=== PATIENT | male | born 1990 | race Hispanic/Latino ===

== ENCOUNTER 2017-02-13 17:59 | Observation (INO) | payer OTHER ==
[~2017-02-13] VITALS: Ht 175.3 cm; Wt 86.9 kg
[2017-02-13 17:45] VITALS: BP 157/103; PULSE 78; RESP 20; O2SAT 96
[~2017-02-13 17:59] MED LIST: Dexamethasone 4 mg/mL Inj ONE; Ondansetron 2 mg/mL 2 mL Inj ONE; Propofol 10,000 mCg/mL 20 mL Inj ONE; Rocuronium 10 mg/mL 5 mL Inj ONE; fentaNYL-PF 50 mCg/mL 2 mL Inj ONE
[2017-02-13] MEDS: Dextrose 5% Lactated Ringer's 1,000 ML IV SCH (18:03)
[2017-02-13] MEDS ORDERED: MetoCLOpramide 5 mg/mL 2 mL Inj IVPUSH PRN (18:05)
[2017-02-13] MEDS ORDERED: Ondansetron 2 mg/mL 2 mL Inj IVPUSH PRN (18:05)
[2017-02-13] MEDS: HYDROmorphone 1 mg/mL Inj IVPUSH PRN (19:11)
--- NOTE | 2017-02-13 19:13 | NUR ---
Admit Pt. arrived to unit at 1745. Pt. alert and oriented. 20 g IV site present to right AC, patent. Pain to right, lower abd, reported 5/10. Denies n/v. BP elevated 150/100, due to anxiety, afebrile, on RA. NPO since 0800 AM. Loose stools per bathroom, from drinking prune juice. No home medications. Valuables at beside, recommended to take home by family. Pt. has IV fluids infusing per MD orders. Diluadid 0.5mg IV given. Reported to Kamlesh Sales RN to continue care.
[2017-02-13 20:02] VITALS: BP 126/80; PULSE 75; RESP 16; O2SAT 97
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
[2017-02-13] MEDS ORDERED: Lactated Ringer's 1,000 ML IV ONE (23:55)
[2017-02-14] VITALS (9 sets, daily range): BP systolic 118–153; BP diastolic 71–109; PULSE 68–94; RESP 11–16; O2SAT 98–100
[2017-02-14] MEDS ORDERED: Lactated Ringer's 500 ML IV PRN (00:28)
[2017-02-14] MEDS ORDERED: Lactated Ringer's 1,000 ML IV SCH (00:28)
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
[2017-02-14] MEDS ORDERED: EPHEDrine Sulfate 50 mg/mL Inj IVPUSH PRN (00:30)
[2017-02-14] MEDS ORDERED: Piperacillin-Tazo 3.375 Gm Inj 3.375 GM in Dextrose 5% Minibag Plus 50 ML IV SCH (00:30)
[2017-02-14] MEDS ORDERED: Ondansetron 2 mg/mL 2 mL Inj IVPUSH PRN (00:30)
[2017-02-14] MEDS ORDERED: Phenylephrine 10,000 mCg/mL Inj IVPUSH PRN (00:30)
[2017-02-14] MEDS ORDERED: Dexamethasone 4 mg/mL Inj IVPUSH PRN (00:30)
[2017-02-14] MEDS ORDERED: HYDROmorphone 1 mg/mL Inj IVPUSH PRN (00:30)
[2017-02-14] MEDS ORDERED: MetoCLOpramide 5 mg/mL 2 mL Inj IVPUSH PRN (00:30)
[2017-02-14] MEDS ORDERED: Bupivacaine-MPF 0.25%/EPI 30 mL Inj INFILTRATE ONE (00:41)
--- NOTE | 2017-02-14 01:37 | PCM.ANEP1 ---
Post Anesthesia PACU Phase 1 Assessment Vital Signs 36.5, 95, 16, 100%, 152/94. Vital Signs Date Time Temp Pulse Resp B/P Pulse Ox O2 Delivery O2 Flow Rate FiO2 02/13/17 20:02 36.9 75 16 126/80 97 Room Air 02/13/17 17:45 36.7 78 20 157/103 96 Room Air Anesthetic Administered: GA Level of Alertness: Awake, talking ARRIETA's with Equal Strength: Yes Pain: No Pain Scale Score: 0 Nausea or Vomiting: No CV Function & Hydration Stable: Yes Airway Device: none Oxygen Delivery: Simple Mask Lungs: Clear to Auscultation, Normal Air Movement Dermatome Level: Full Sensation Summary uneventful GETA PACU Phase 2 Assessment Complications: No Follow up Care: No Patient Instructions Provided: N/A Alex Souza MD Feb 14, 2017 01:37
[2017-02-14] MEDS: fentaNYL-PF 50 mCg/mL 2 mL Inj IVPUSH PRN ×2 (01:47→01:51)
[2017-02-14] MEDS: Dextrose 5% Lactated Ringer's 1,000 ML IV SCH (02:28)
[2017-02-14] MEDS: HYDROmorphone 1 mg/mL Inj IVPUSH PRN (04:00)
--- NOTE | 2017-02-14 04:07 | OP ---
[address] [address] OPERATIVE REPORT PATIENT: LOUISA ANDERSON : 1990 MR#: [id number] ADMIT: 02/13/2017 JOB ID: [id number] DATE OF SURGERY: 02/14/2017 PREOPERATIVE DIAGNOSIS(ES): Acute appendicitis. POSTOPERATIVE DIAGNOSIS(ES): Acute appendicitis. PROCEDURE: Laparoscopic appendectomy. SURGEON: Bruno Last MD. HAIRSPRING ADJUSTER: Hugh Florez MD. INDICATIONS: A 26-year-old male with a history of abdominal pain over the last 24 hours that ultimately migrated to the right lower quadrant. He came to the emergency department. A CT scan showed appendicitis and after discussing options with the patient, it was elected proceed with a laparoscopic, possible open appendectomy. FINDINGS: He had acute appendicitis. The base of the appendix was normal. The terminal ileum appeared normal without evidence of inflammation. There is no evidence of cecal or ascending colon inflammation. DESCRIPTION OF PROCEDURE: At the beginning and end of the operation, the SCOAP checklist was completed. A general endotracheal anesthetic was induced. Using ChloraPrep, he was prepped and draped in the usual fashion. He received preoperative antibiotics. He received local anesthesia with 0.25% bupivacaine with epinephrine. An infraumbilical incision was made. The abdominal cavity was entered, cannula inserted, the abdomen insufflated with CO2. Under direct visualization, 5 mm ports were placed in the left lower quadrant and one in the suprapubic region. The inflamed appendix was identified and elevated. The base of the appendix was normal. The mesoappendix was thickened and so it was elected to make a window at the base of the appendix which was done with a combination of cautery and blunt dissection. After the window was made, a JOSE LUIS stapler was placed with a visceral load and the base of the appendix was stapled. The mesoappendix, which I stated above was thickened, was then divided with a vascular load with the JOSE LUIS. Both staple lines were intact and there is no evidence of bleeding from the staple line. The right lower quadrant and pelvis were irrigated with saline and aspirated. The appendix had been placed into a specimen bag. The specimen bag was removed through the umbilical cavity. Trocars were removed without evidence of significant bleeding. The umbilical fascial incision was closed with a [id number] 0 Vicryl. Skin incisions with subcuticular 4-0 Vicryl. Steri-Strips and Band-Aids were applied. Estimated blood loss 10 cc. No apparent complications. The final sponge, needle and instrument counts were announced as correct and the patient was returned to recovery in stable condition.
--- NOTE | 2017-02-14 06:15 | NUR ---
Lap/Appy Pt here from [facility] for R/O Appendicitis which was confirmed by CT so he was scheduled for a Lap/Appy last night. It was successful w/o complications. VSS and he is in good spirits.He has had some pain but and has had relieve with Dilaudid. He is on RA and an IV with D5/LR running.
[2017-02-14 07:35] LABS: BASOPHILS % (AUTO) 0.1 % (0-3); EOSINOPHILS % (AUTO) 0 % (0-5); MONOCYTES % (AUTO) 2.8 % (4-12); Mean Corpuscular Hemoglobin 29.2 pg (27.0-35.0); Mean Corpuscular Volume 83.6 fL (81-100); NEUTROPHILS % (AUTO) 88.8 % (40-74); Platelet Count 245 bil/L (150-400)
--- NOTE | 2017-02-14 08:12 | NUR ---
Social Work: Screen D: Per EMR review, pt is a 26 year old male admitted for appendicitis. Pt is [employer] insurance with no supplement. PCP is not listed. NOK is Pratik Fernandes, Friend. Advanced directives not completed- copy of directives left for patient at bedside. No RA score entered at this time. Pt underwent lap. appy with general surgery. No hospitalist assigned to care. A: Pt who lives in [place]. Pt has been ambulating I to the bathroom during admission. Pt does not screen in for assessment however case management will continue to follow. P: Anticipate pt to discharge home via POV once medically stable; GEOPHYSICAL SUPPORT SPECIALIST to continue to follow to assess for unmet discharge needs. EDUARDO Dia
[2017-02-14] MEDS ORDERED: Polyethylene Glycol (PEG) 17 Gm Powder PO SCH (08:30)
--- NOTE | 2017-02-14 10:07 | PCM.DISURG ---
Surgical Discharge Instruction Date of Service Feb 14, 2017 Dates of Hospitalization Date of Hospital Admission Feb 13, 2017 at 17:59 Providers Admitting Physician: Bruno Last MD Primary Care Physician: Nopcp Attending Physician: Bruno Last MD Discharge Diagnosis Discharge Diagnosis Acute appendicitis (non-perforated) Diet Discharge Diet: No restrictions Activity Discharge Activity-General: Try not to overdue, Be up and about, Activity as pain allows, No lifting >15 pounds for 2 weeks, No driving while taking narcotic Dressing and Incisional Care Dressing Care: Allow Steri Stripes to fall off, Remove outer dressing after 24 hrs Hygiene: May shower after (24 hours), DO NOT soak incision under water, NO bathtub, hot tub or whirlpool Additional Instructions Discharge Instructions Please call to arrange a follow up in the surgery clinic in 7-10 days. Call at any time with questions or concerns. Take Tylenol around the clock (every 6 hours) for baseline pain control. Take oxycodone as needed for severe pain every 6 hours, and wean as tolerated. Take Miralax to help promote smooth and soft bowel movements while using narcotic pain medications. Follow Up Plan Follow Up Plan Surgery clinic (with PA) in 7-10 days. Call your provider for: Fever, Chills, Increasing abdominal pain, Nausea, Vomiting, Wound redness, Discharge @ incision, pus discharge Sam Florez MD Feb 14, 2017 10:07
[2017-02-14] MEDS ORDERED: POLY17PO6 PO (10:13)
[2017-02-14] MEDS ORDERED: OXYC5TAB72 PO (10:13)
[2017-02-14] MEDS ORDERED: Acetaminophen PO (10:13)
--- NOTE | 2017-02-14 10:34 | PROG NOTE ---
[address] [address] PROGRESS NOTE PATIENT: LOUISA ANDERSON : 1990 MR#: [id number] ADMIT: 02/13/2017 JOB ID: [id number] DATE: 02/14/2017 SUBJECTIVE: The patient is seen in followup. He is doing well. He has no nausea. He still has some lower abdominal pain but overall his pain is well controlled. He is urinating. OBJECTIVE: Temperature 36.9, pulse 123/71, saturation 99% on room air. General: He is resting in bed in no acute distress. Chest is clear. Heart: Regular rate and rhythm. No murmurs. Abdomen is soft, nondistended. His incisions are clean with no erythema. LABORATORIES: White count is 11.1, hematocrit 40.7, creatinine 0.93, glucose 158. ASSESSMENT AND PLAN: A 26-year-old man postoperative day one, status post laparoscopic appendectomy for acute non perforated appendicitis. He is doing well. He will be discharged to home today. He does not need additional antibiotics. He will followup in the [facility] Surgery [facility] in two weeks.
--- NOTE | 2017-02-14 12:32 | NUR ---
Discharge Pt d/c at 1155. Walked self out w/ staff. Time taken to go over d/c instruction, new medications, and f/u plan. Teaching reinforced regarding incision care. Pt had no further questions at time of d/c. It was a pleasure to take care of this patient.
--- NOTE | 2017-02-15 06:41 | PCM.DC.SUR ---
Discharge Summary Date of Service: Feb 14, 2017 Date of Hospital Admission: Feb 13, 2017 at 17:59 Date of Discharge: February 14, 2017 Diagnosis at Time of Discharge Acute appendicitis Problems: Brief History and Physical: From H&P dated 02/13/17: "Mr. Fried is a 26 year old male who presents with acute right lower quadrant abdominal pain of 24 hours duration. He offers that yesterday afternoon he was in usual state of health until he developed gradual onset mid abdominal pain. This pain was initially an achy, crampy pain, that he attributed to gas. He was able to sleep well last night, but awoke in the morning with severe pain that had migrated to his right lower quadrant. This pain was sharp and unrelenting. He avi prune juice and coffee this morning, hopeful to promote a bowel movement, and has since had several episodes of diarrhea without any relief of his pain. As the pain continued to worsen, he decided to present to urgent care. There he was found to have a WBC of 11.[address] scan was obtained demonstrating findings concerning for acute appendicitis. He was given 1 g of ceftriaxone and transferred to our facility. Upon arrival, he reports that his pain is improved as a result of medications. He states he vomited while in the CT scanner, but has otherwise had no nausea or vomiting. He was having normal bowel movements until the diarrhea this morning, which has seemed to resolved. He denies any fevers, chills, urinary changes, or having ever had similar symptoms in the past." Hospital Course: The patient was admitted for IV antibiosis, fluid resuscitation and pain management until there was OR availability. He remained comfortable and hemodynamically normal before proceeding to the OR for an uncomplicated laparoscopic appendectomy. Following this, he returned to the general surgery floor for overnight observation, dietary advancement, and pain control. He resumed normal and spontaneous bowel and bladder function, was tolerant of ambulation, and his pain was well controlled by the morning of POD#1. At this point he had met or exceeded all criteria for a safe discharge to home. He was given prescription for pain meds and instructed on return precautions. Disposition: Follow up in general surgery clinic in 7 days. ([Acetaminophen]) 325 MG TABLET 650 MG PO Q6H Polyethylene Glycol 3350 (Miralax) 17 Gm Powd.pack 17 GM PO BID PRN PRN For Constipation Hold for liquid stool oxyCODONE (oxyCODONE) 5 Mg Tablet 5 MG PO Q6H PRN PRN For Moderate Pain Sam Florez MD Feb 15, 2017 06:41
--- NOTE | 2017-02-16 19:26 | PATH ---
SURGICAL PATHOLOGY Attending Physician:Maile Arriola CASE STATUS: Signed Out PATIENT NAME: LOUISA ANDERSON PID: [id number] : 1990 DATE COLLECTED:02/14/2017 15:46 SPECIMEN: Appendix CLINICAL HISTORY: APPENDICITIS 1. APPENDIX FINAL DIAGNOSIS: 1.APPENDIX, LAPAROSCOPIC APPENDECTOMY: ACUTE APPENDICITIS AND SEROSITIS. ICD10 K35.80 GROSS DESCRIPTION: The specimen is received in formalin, labeled with the patient's name, sublabeled as appendix, and consists of an intact appendix (length-5.0 cm, diameter-0.9 cm) with attached mesoappendix (up to 1.9 cm in depth). The resection margin is received stapled. The serosa is fairchild-white smooth and shiny. The lumen contains mena-pink solid soft material. The wall is up to 0.3 cm thick. No nodules, masses or lesions are identified. Ink code: purple-proximal. Section code: (A) appendix, sales utility representative. 02/14/17 MICRO DESCRIPTION: See diagnosis. ICD-9 CODES: CPT CODES: 1: 26057 Electronically Signed Out Una Giraldo MD [facility] Pathology [facility] [address], [place] [address] Technical component performed at [facility], [address] [place] [address] [address], [place], [address]
== END 2017-02-14 11:55 | disposition home or self-care (01) ==
LOC: INTOOBSV 17:59 → MOC 17:59
PROVIDERS: ADMIT Surgery; ATTEND Surgery
PROC: 0DTJ4ZZ Resection of Appendix, Percutaneous Endoscopic Approach (ICD-10-PCS; principal; 2017-02-13 20:30)
DX: K35.80 Unspecified acute appendicitis (principal)
CPT/HCPCS: 36415; 44970; 80048; 85025; 96374; G0378; J1100; J1170; J1885; J2175; J2250; J2405; J2543; J3010; J7120